=== PATIENT | female | born 1975 | race Caucasian/White ===

== ENCOUNTER 2021-05-31 10:58 | Inpatient (IN) ==
[2021-05-31 12:08] LABS: Basophils % 0.2 %; Hematocrit 42.2 % (35.3-44.9); Immature Granulocytes % 0.6 % (0-4); Lymphocytes # 0.7 K/mcL (0.6-4.6); Lymphocytes % 7.3 %; Mean Corpuscular HGB Conc 33.2 g/dL (31.6-35.5); Mean Corpuscular Hemoglobin 27.1 pg (28.0-33.3); Mean Corpuscular Volume 81.8 fL (83.0-100.0); Mean Platelet Volume 10.8 fL (9.4-12.4); Monocytes # 0.5 K/mcL (0.0-1.3); Monocytes % 5.4 %; Neutrophils # 7.8 K/mcL (1.6-8.9); Platelet Count 311 K/mcL (140-400); Red Blood Count 5.16 M/mcL (3.82-4.97); Red Cell Distribution Width 12.3 % (11.5-14.5); Segmented Neutrophils % 86.5 %
[2021-05-31] MEDS ORDERED: 0.9 % Sodium Chloride 500 ML IVC ONE (12:08)
[2021-05-31 12:31] LABS: BUN/Creatinine Ratio 20 (6-26); Blood Urea Nitrogen 21 mg/dL (6-20); Calcium 9.1 mg/dL (8.6-10.3); Carbon Dioxide 26 mEq/L (23-29); Chloride 92 mEq/L (98-107); Glucose 165 mg/dL (70-105); Osmolality,Calculated 281 (280-300); Potassium 2.6 mEq/L (3.5-5.1); Sodium 132 mEq/L (136-145); Troponin I < 0.03 ng/mL (< 0.04); eGFR For African Americans > 60 (> 60); eGFR For Non-African Americans 56 (> 60)
[2021-05-31] MEDS ORDERED: Potassium Chloride Elixir 20 MEQ/15 ML UDC PO ONE ×2 (12:37→18:00)
[2021-05-31] MEDS ORDERED: Isovue-370 500 ML BOTTLE IVP ONE (12:37)
[2021-05-31] MEDS ORDERED: D5% in Water 1,000 ML IVC PRN (14:07)
[2021-05-31] MEDS ORDERED: Acetaminophen 325 MG TABLET PO PRN (14:07)
[2021-05-31] MEDS ORDERED: *HR* Dextrose 50 % in Water (Syg) 50 ML SYRINGE IVP PRN (14:07)
[2021-05-31] MEDS ORDERED: Dextrose Gel 15 GM/37.5 ML TUBE PO PRN ×2 (14:07)
[2021-05-31] MEDS ORDERED: Ondansetron 4 MG/2 ML VIAL IVP PRN (14:07)
[2021-05-31] MEDS ORDERED: Naloxone 0.4 MG/ML INJ IVP PRN (14:07)
[2021-05-31 14:35] LABS: Magnesium 2.3 mg/dL (1.6-2.6)
[2021-05-31] MEDS ORDERED: ALPRAZolam 0.25 MG TABLET PO PRN (15:00)
[2021-05-31 16:04] LABS: C-Reactive Protein 288 mg/L (Less than 10)
[2021-05-31] MEDS: Insulin LISPRO 300 UNITS/3 ML VIAL SUBQ SCH (16:37)
[2021-05-31] MEDS: *HR* Heparin 5,000 UNIT/ML VIAL SQ SCH ×2 (17:11→17:17)
[2021-05-31] MEDS ORDERED: Benzonatate 100 MG CAPSULE PO PRN (17:24)
[2021-05-31 20:57] LABS: Influenza A PCR Negative (Negative); Influenza B PCR Negative (Negative); Resp. Syncytial Virus PCR Negative (Negative)
[2021-05-31 21:00] LABS: SARS-CoV-2 by PCR (In House) Positive (Negative)
[2021-05-31] MEDS: Insulin DETEMIR 100 UNIT/ML X5UNITS SUBQ SCH (21:15)
[2021-06-01 02:09] LABS: Basophils % 0.2 %; Hematocrit 39.1 % (35.3-44.9); Immature Granulocytes % 0.5 % (0-4); Lymphocytes # 0.6 K/mcL (0.6-4.6); Lymphocytes % 9.8 %; Mean Corpuscular HGB Conc 33.2 g/dL (31.6-35.5); Mean Corpuscular Hemoglobin 27.3 pg (28.0-33.3); Mean Corpuscular Volume 82.1 fL (83.0-100.0); Mean Platelet Volume 11.1 fL (9.4-12.4); Monocytes # 0.3 K/mcL (0.0-1.3); Monocytes % 5.3 %; Neutrophils # 5.1 K/mcL (1.6-8.9); Platelet Count 297 K/mcL (140-400); Red Blood Count 4.76 M/mcL (3.82-4.97); Red Cell Distribution Width 12.3 % (11.5-14.5); Segmented Neutrophils % 84.2 %
[2021-06-01 02:47] LABS: BUN/Creatinine Ratio 25 (6-26); Blood Urea Nitrogen 21 mg/dL (6-20); Calcium 8.8 mg/dL (8.6-10.3); Carbon Dioxide 27 mEq/L (23-29); Chloride 96 mEq/L (98-107); Glucose 339 mg/dL (70-105); Magnesium 2.7 mg/dL (1.6-2.6); Osmolality,Calculated 292 (280-300); Potassium 3.3 mEq/L (3.5-5.1); Sodium 133 mEq/L (136-145); eGFR For African Americans > 60 (> 60); eGFR For Non-African Americans > 60 (> 60)
[2021-06-01] MEDS: *HR* Heparin 5,000 UNIT/ML VIAL SQ SCH ×2 (04:17→17:53)
[2021-06-01] MEDS: ARIPiprazole 5 MG TABLET PO SCH (08:43)
[2021-06-01] MEDS: (Vilazodone Hcl [Viibryd] 40 MG Tablet) PO SCH (08:46)
[2021-06-01] MEDS: Insulin LISPRO 300 UNITS/3 ML VIAL SUBQ SCH ×3 (08:55→17:54)
[2021-06-01] MEDS: Insulin DETEMIR 100 UNIT/ML X5UNITS SUBQ SCH (20:42)
[2021-06-02] MEDS: *HR* Heparin 5,000 UNIT/ML VIAL SQ SCH ×2 (05:10→17:56)
[2021-06-02] MEDS: Insulin LISPRO 300 UNITS/3 ML VIAL SUBQ SCH ×3 (09:05→17:59)
[2021-06-02] MEDS: ARIPiprazole 5 MG TABLET PO SCH (09:49)
[2021-06-02] MEDS: (Vilazodone Hcl [Viibryd] 40 MG Tablet) PO SCH (09:49)
[2021-06-02] MEDS: Metoprolol XL (24 HR) Succ 50 MG TAB.ER.24H PO SCH (11:52)
[2021-06-02] MEDS: Insulin DETEMIR 100 UNIT/ML X5UNITS SUBQ SCH (21:20)
[2021-06-03] MEDS: *HR* Heparin 5,000 UNIT/ML VIAL SQ SCH (04:46)
[2021-06-03] MEDS: ARIPiprazole 5 MG TABLET PO SCH (09:00)
[2021-06-03] MEDS: Metoprolol XL (24 HR) Succ 50 MG TAB.ER.24H PO SCH (09:00)
[2021-06-03 10:34] VITALS: PULSE 97; TEMP 97.4
[2021-06-03 11:08] VITALS: BP 125/82
[2021-06-03] MEDS: Insulin LISPRO 300 UNITS/3 ML VIAL SUBQ SCH ×2 (12:07→12:17)
[2021-06-03 12:35] VITALS: O2SAT 93
[2021-06-03] MEDS: (Vilazodone Hcl [Viibryd] 40 MG Tablet) PO SCH (13:08)
== END 2021-06-03 13:47 | disposition home or self-care (01) | DRG 871 ==
LOC: 3BNU 10:58 → EMEROOARM 10:58 → 3BNU 14:52
PROVIDERS: ADMIT Internal Medicine; ATTEND Internal Medicine